=== PATIENT | female | born 1995 | race Caucasian/White ===

== ENCOUNTER 2018-07-15 22:19 | Inpatient (IN) | payer SELFPAY ==
[~2018-07-15] VITALS: Ht 175.3 cm; Wt 65.5 kg
[2018-07-15 22:52] VITALS: Ht 175.3 cm; Wt 65.5 kg
[2018-07-15 22:52] LABS: BASOPHIL % 0.3 % (0-2); PLATELET COUNT 289 x10^3mcL (130-400); RED CELL DISTRIBUTION WIDTH 14.7 % (11.5-14.5)
[2018-07-15 23:21] LABS: CALCIUM 9.4 mg/dL (8.5-10.1); CARBON DIOXIDE 26.5 mmol/L (21-32); CHLORIDE SERUM 103 mmol/L (98-107); CREATININE SERUM 0.7 mg/dL (0.6-1.0); GFR1 > 60 mL/min; GLUCOSE SERUM 149 mg/dL (74-106); POTASSIUM SERUM 3.6 mmol/L (3.5-5.1); SODIUM SERUM 137 mmol/L (136-145)
[2018-07-15 23:22] LABS: ALBUMIN 4.1 g/dL (3.4-5.0); ALKALINE PHOSPHATASE 87 U/L (46-116); ALT/SGPT 26 U/L (14-59); AST/SGOT 19 U/L (15-37); BILIRUBIN TOTAL 0.1 mg/dL (0.20-1.00)
[2018-07-15 23:23] LABS: TOTAL PROTEIN, SERUM 8.4 g/dL (6.4-8.2)
[2018-07-15 23:32] LABS: AMPHETAMINE QUAL UR NONE DETECTED (See below)
[2018-07-16 16:17] VITALS: BP 119/61
[2018-07-16 16:28] LABS: MAGNESIUM 2.1 mg/dL (1.8-2.4); PHOSPHOROUS 3.3 mg/dL (2.5-4.9)
[2018-07-16 16:37] LABS: T3 TOTAL 1.48 ng/mL
[2018-07-16 16:52] LABS: FREE T4 1.01 ng/dL (0.76-1.46); T4(THYROXINE) 8.2 ug/dL (4.7-13.3)
[2018-07-16 20:28] VITALS: BP 118/63
[2018-07-17 05:28] VITALS: BP 115/65
[2018-07-17 06:35] LABS: BASOPHIL % 0.4 % (0-2); PLATELET COUNT 265 x10^3mcL (130-400)
[2018-07-17 07:12] LABS: CALCIUM 9.4 mg/dL (8.5-10.1); CARBON DIOXIDE 26.9 mmol/L (21-32); CHLORIDE SERUM 103 mmol/L (98-107); CREATININE SERUM 0.7 mg/dL (0.6-1.0); GFR1 > 60 mL/min; GLUCOSE SERUM 93 mg/dL (74-106); POTASSIUM SERUM 3.6 mmol/L (3.5-5.1); SODIUM SERUM 138 mmol/L (136-145)
[2018-07-17 07:47] VITALS: BP 124/70
[2018-07-17 18:01] VITALS: BP 145/81
[2018-07-17 20:38] VITALS: BP 121/77
[2018-07-18 05:53] VITALS: BP 115/83
[2018-07-18 08:48] VITALS: BP 154/88
[2018-07-18 18:37] VITALS: BP 127/69
[2018-07-18 20:54] VITALS: BP 101/57
[2018-07-19 05:49] VITALS: BP 128/82
[2018-07-19 08:44] VITALS: BP 107/66
[2018-07-19 10:30] LABS: CALCIUM 8.8 mg/dL (8.5-10.1); CARBON DIOXIDE 27.4 mmol/L (21-32); CHLORIDE SERUM 104 mmol/L (98-107); CREATININE SERUM 0.7 mg/dL (0.6-1.0); GFR1 > 60 mL/min; GLUCOSE SERUM 117 mg/dL (74-106); POTASSIUM SERUM 3.7 mmol/L (3.5-5.1); SODIUM SERUM 140 mmol/L (136-145)
[2018-07-19 10:38] LABS: BASOPHIL % 0.2 % (0-2); PLATELET COUNT 274 x10^3mcL (130-400); RED CELL DISTRIBUTION WIDTH 14.7 % (11.5-14.5)
[2018-07-19 13:14] VITALS: BP 107/66
== END 2018-07-19 15:08 | disposition home or self-care (01) | DRG 604 ==
LOC: ED 22:19 → MU 07-16 13:32
PROVIDERS: Emergency Medicine; ADMIT Family Medicine
DX: S41.112A Laceration without foreign body of left upper arm, initial encounter (principal); G92 Toxic encephalopathy; F23 Brief psychotic disorder; A08.4 Viral intestinal infection, unspecified; R73.9 Hyperglycemia, unspecified; X78.1XXA Intentional self-harm by knife, initial encounter; Y93.89 Activity, other specified; Y92.89 Other specified places as the place of occurrence of the external cause; Z72.89 Other problems related to lifestyle; Y99.8 Other external cause status
CPT/HCPCS: 84439; G0480; J1630; J2001; J2250; J2405; Q0162